=== PATIENT | male | born 1985 | race Asian ===

== ENCOUNTER 2017-02-18 08:39 | Emergency (ER) | payer OTHER ==
[~2017-02-18] VITALS: Ht 177.8 cm; Wt 81.6 kg
[2017-02-18 08:52] VITALS: BP 135/87
[2017-02-18 09:41] LABS: BASOPHILS % (AUTO) 1.2 % (0.0-2.0); EOSINOPHILS % (AUTO) 1.8 % (0.0-3.0); LYMPHOCYTES % (AUTO) 32.1 % (20.0-45.0); MEAN CORPUSCULAR HEMOGLOBIN 30.6 PG (27.0-31.0); MEAN CORPUSCULAR HGB CONC 32.6 G/DL (32.0-36.0); MEAN CORPUSCULAR VOLUME 94 FL (80-99); MEAN PLATELET VOLUME 5.4 FL (6.5-10.1); MONOCYTES % (AUTO) 7.2 % (1.0-10.0); NEUTROPHILS % (AUTO) 57.7 % (45.0-75.0); PLATELET COUNT 362 K/UL (150-450); RED BLOOD COUNT 4.76 M/UL (4.70-6.10); RED CELL DISTRIBUTION WIDTH 15.1 % (11.6-14.8); WHITE BLOOD COUNT 9.6 K/UL (4.8-10.8)
[2017-02-18 09:52] LABS: ALANINE AMINOTRANSFERASE 400 U/L (3-41); ALBUMIN/GLOBULIN RATIO 1.3 (1.0-2.7); ANION GAP 11 (5-15); ASPARTATE AMINO TRANSFERASE 57 U/L (5-40); CALCIUM 9.8 mg/dL (8.6-10.2); CARBON DIOXIDE 29 mEQ/L (20-30); CHLORIDE 100 mEQ/L (98-107); CREATININE 0.8 mg/dL (0.7-1.2); GLOMERULAR FILTRATION RATE > 60 mL/min (>60); HEMOLYSIS 7; POTASSIUM 3.8 mEQ/L (3.4-4.9); SODIUM 140 mEQ/L (135-145); TOTAL PROTEIN 7.1 g/dL (6.6-8.7)
[2017-02-18 09:57] VITALS: BP 138/76
[2017-02-18 10:02] LABS: CKMB 3.5 ng/mL (< 6.7)
[2017-02-18] MEDS ORDERED: LORazepam Inj 2mg/ml 1ml IV ONE (11:00)
[2017-02-18 11:05] VITALS: BP 147/86
--- NOTE | 2017-02-18 13:29 | Emergency Room Report ---
History of Present Illness General Chief Complaint: Substance Abuse Source: EMS Present Illness HPI 31YOM BIBEMS and [employer] after alleged arrest for robbery While running from Police patient swallowed Meth and 1/2 gram of heroin Now c/o nausea and "agitation from meth." Also drank ETOH Denies chest pain, SOB, abd pain, urinary complaints Denies other medical problems Denies trauma Allergies: Coded Allergies: No Known Allergies (Unverified , 02/18/17) Patient History Past Medical History: none Past Surgical History: none Pertinent Family History: none Social History: Reports: alcohol use, drug use, smoking Immunizations: UTD Reviewed Nursing Documentation: PMH: Agreed, PSxH: Agreed Nursing Documentation-PMH Past Medical History: No History, Except For History Of Psychiatric Problem: Yes - substance abuse Review of Systems All Other Systems: negative except mentioned in HPI Physical Exam Vital Signs Date Time Temp Pulse Resp B/P Pulse Ox O2 Delivery O2 Flow Rate FiO2 02/18/17 08:30 98.2 112 18 142/100 98 Room Air Sp02 EP Interpretation: reviewed, normal General Appearance: normal inspection, well appearing, no apparent distress, alert, GCS 15, non-toxic Head: normocephalic, atraumatic Eyes: bilateral eye EOMI, bilateral eye PERRL ENT: normal ENT inspection, hearing grossly normal, normal voice Neck: normal inspection, full range of motion, supple, no bony tend Respiratory: normal inspection, lungs clear, normal breath sounds, no rhonchi, no respiratory distress, no retraction, no accessory muscle use, no wheezing, speaking full sentences Cardiovascular #1: regular rate, rhythm, no edema Gastrointestinal: normal inspection, normal bowel sounds, non tender, soft, no guarding, no hernia Genitourinary: no CVA tenderness Musculoskeletal: normal inspection, back normal, normal range of motion, Zoraida' s Sign negative Neurologic: normal inspection, alert, oriented x3, responsive, wood fuel pelletizer III-XII nml as tested, motor strength/tone normal, speech normal Psychiatric: normal inspection, judgement/insight normal, mood/affect normal Skin: normal inspection, normal color, no rash Medical Decision Making Diagnostic Impression: Primary Impression: Substance abuse Additional Impression: Medical clearance for incarceration ER Course 31YOM with medical clearance Utox + for opiates, meth, marijuana [place] better after IV zofran, ativan Labs significant for polysubstance abuse, elevated AST, likely from ETOH Medically cleared for booking with [employer] Last Vital Signs Date Time Temp Pulse Resp B/P Pulse Ox O2 Delivery O2 Flow Rate FiO2 02/18/17 11:05 98.2 102 11 147/86 96 Room Air Status: improved Disposition: D/C TO LAW ENFORCEMENT IN [facility] Condition: Improved Referrals: NOT CHOSEN IPA/MD,REFERRING (PCP) Patient Instructions: Stimulant Use Disorder-Methamphetamines Additional Instructions: MEDICALLY CLEARED FOR BOOKING ERIN PRECIADO M.D. Feb 18, 2017 13:29
== END 2017-02-18 11:05 ==
LOC: EDBD 08:39 → EMR 09:15
DX: F15.10 Other stimulant abuse, uncomplicated (principal); F11.10 Opioid abuse, uncomplicated; F10.10 Alcohol abuse, uncomplicated; F17.200 Nicotine dependence, unspecified, uncomplicated; Z02.89 Encounter for other administrative examinations
CPT/HCPCS: 36415; 80053; 80300; 82553; 85025; 96374; 96375; 99284; J2405